=== PATIENT | female | born 1945 | race Caucasian/White ===

== ENCOUNTER 2016-08-11 12:10 | Outpatient (RCR) | payer OTHER | END 2016-09-09 | disposition home or self-care (01) | LOC: PTY 12:10 | PROVIDERS: ATTEND Internal Medicine | DX: M16.0 Bilateral primary osteoarthritis of hip (principal); M17.9 Osteoarthritis of knee, unspecified; I10 Essential (primary) hypertension; E66.9 Obesity, unspecified; Z88.8 Allergy status to other drugs, medicaments and biological substances ==

== ENCOUNTER 2016-09-13 08:30 | Outpatient (RCR) | payer OTHER | END 2016-10-09 | disposition home or self-care (01) | LOC: PTY 08:30 | PROVIDERS: ATTEND Internal Medicine | DX: M16.0 Bilateral primary osteoarthritis of hip (principal); M17.9 Osteoarthritis of knee, unspecified; I10 Essential (primary) hypertension; E66.9 Obesity, unspecified | CPT/HCPCS: 97110; G0283 ==

== ENCOUNTER 2016-10-10 10:00 | Outpatient (RCR) | payer OTHER | END 2016-11-09 | disposition home or self-care (01) | LOC: PTY 10:00 | PROVIDERS: ATTEND Internal Medicine | DX: M16.0 Bilateral primary osteoarthritis of hip (principal) | CPT/HCPCS: 97110; G0283 ==

== ENCOUNTER 2016-11-11 08:53 | Outpatient (RCR) | payer OTHER | END 2016-12-09 | disposition home or self-care (01) | LOC: PTY 08:53 | PROVIDERS: ATTEND Internal Medicine | DX: M16.0 Bilateral primary osteoarthritis of hip (principal) ==

== ENCOUNTER 2017-02-01 12:54 | Outpatient (RCR) | payer OTHER | END 2017-02-09 | disposition home or self-care (01) | LOC: PTY 12:54 | PROVIDERS: ATTEND Internal Medicine | DX: M16.0 Bilateral primary osteoarthritis of hip (principal) ==

== ENCOUNTER 2017-06-19 14:00 | Outpatient (RCR) | payer OTHER | END 2017-07-12 | disposition home or self-care (01) | LOC: PTY 14:00 | PROVIDERS: ATTEND Internal Medicine | DX: R26.81 Unsteadiness on feet (principal); R53.1 Weakness; Z96.642 Presence of left artificial hip joint ==

== ENCOUNTER 2017-07-13 14:30 | Outpatient (RCR) | payer OTHER | END 2017-08-09 | disposition home or self-care (01) | LOC: PTY 14:30 | PROVIDERS: ATTEND Internal Medicine | DX: M16.0 Bilateral primary osteoarthritis of hip (principal); M17.0 Bilateral primary osteoarthritis of knee; Z96.642 Presence of left artificial hip joint; Z96.641 Presence of right artificial hip joint; R53.1 Weakness; R26.81 Unsteadiness on feet ==

== ENCOUNTER 2017-08-10 11:00 | Outpatient (RCR) | payer OTHER | END 2017-09-09 | disposition home or self-care (01) | LOC: PTY 11:00 | PROVIDERS: ATTEND Internal Medicine | DX: M16.0 Bilateral primary osteoarthritis of hip (principal); M17.0 Bilateral primary osteoarthritis of knee; Z96.642 Presence of left artificial hip joint; Z96.641 Presence of right artificial hip joint; R53.1 Weakness; R26.81 Unsteadiness on feet ==

== ENCOUNTER 2017-09-11 12:50 | Outpatient (RCR) | payer OTHER | END 2017-10-09 | disposition home or self-care (01) | LOC: PTY 12:50 | PROVIDERS: ATTEND Internal Medicine | DX: M16.0 Bilateral primary osteoarthritis of hip (principal); M17.0 Bilateral primary osteoarthritis of knee; I10 Essential (primary) hypertension ==